=== PATIENT | female | born 1950 | race Caucasian/White ===

== ENCOUNTER 2021-05-07 05:40 | Day surgery (SDC) | payer MEDICARE, MEDICAID ==
[2021-05-05 13:42] LABS: COVID AG,FIA SOURCE NASOPHARYNGEAL
[~2021-05-07] VITALS: Ht 162.6 cm; Wt 62.7 kg
[~2021-05-07 05:40] MED LIST: ADV500 IH; ALBU8.5H3 IH; ASPI-556 PO; ATOR40TA28 PO; ESOM20CA31 PO; LACT30L PO; QUET200T PO; RISP4TAB73 PO; SODIUM CHLORIDE 0.9% 1,000 ML IV ONE; SOLI5 PO; ZOLP10TA8 PO
[2021-05-07] MEDS ORDERED: ALBUTEROL SULFATE 2.5 MG/0.5 ML NEB SOLUTION NEB ONE (05:41)
[2021-05-07] MEDS ORDERED: LIDOCAINE 2% 30 ML JELLY TP ONE (05:41)
[2021-05-07] MEDS ORDERED: LIDOCAINE 4% 50 ML SOLUTION TP ONE (05:41)
[2021-05-07] MEDS ORDERED: BENZOCAINE 20% 50 MCG/SPRAY 57 GM TP ONE (05:41)
[2021-05-07] MEDS ORDERED: SODIUM CHLORIDE 0.9% 1,000 ML ONE (05:57)
[2021-05-07] MEDS ORDERED: FentaNYL CITRATE PF 100 MCG/2 ML VIAL ONE (07:30)
[2021-05-07] MEDS ORDERED: MIDAZOLAM HCL 2 MG/2 ML VIAL ONE (07:30)
[2021-05-07 07:44] LABS: GLUCOMETER DEV NAME(LOC) SDS.; GLUCOSE,POINT OF CARE 116 MG/DL (70-110)
[2021-05-07] MEDS ORDERED: MethylPREDNISolone SOD SUCC 125 MG/2 ML VIAL ONE (08:44)
[2021-05-07] MEDS ORDERED: MethylPREDNISolone SOD SUCC 125 MG/2 ML VIAL IVP ONE (08:45)
[2021-05-07] MEDS ORDERED: OXYGEN THERAPY IH SCH (20:00)
== END 2021-05-07 10:25 | disposition home or self-care (01) ==
LOC: SURGERY 05:40
PROVIDERS: ATTEND Internal Medicine Critical Care Medicine
DX: J38.4 Edema of larynx (principal); B37.0 Candidal stomatitis; J44.9 Chronic obstructive pulmonary disease, unspecified; F17.210 Nicotine dependence, cigarettes, uncomplicated; Z90.49 Acquired absence of other specified parts of digestive tract; Z98.890 Other specified postprocedural states
CPT/HCPCS: 31623; 31624; 71045; 82962; 87015; 87070; 87101; 87205; 87206; 87220; 87426; 88108; 88184; 88185; 88312; C9803; J2250; J2930; J3010; J7030; J7613; Z7610